=== PATIENT | female | born 1945 | race Caucasian/White ===

== ENCOUNTER 2017-01-25 21:31 | Inpatient (IN) | payer OTHER, MEDICARE ==
[2017-01-25 22:02] LABS: % IMMATURE GRANULYOCYTES 0.6 % (0.0-1.1); ABSOLUTE IMMATURE GRANULOCYTES 0.03 10^3/uL (0.00-0.10); ADD DIFF? NO; ADD MORPH? NO; ADD SCAN? NO; ATYPICAL LYMPHOCYTE FLAG 10 (0-99); FRAGMENT RBC FLAG 0 (0-99); HEMATOCRIT 40.8 % (38.0-47.0); HEMOGLOBIN 13.7 g/dL (12.6-16.3); LEFT SHIFT FLG 10 (0-99); LIPEMIA HEMOLYSIS FLAG 80 (0-99); MEAN CELL HEMOGLOBIN 35.8 pg (27.9-34.1); MEAN CELL HEMOGLOBIN CONCENTR. 33.6 g/dL (32.4-36.7); MEAN CELL VOLUME 106.5 fL (81.5-99.8); MEAN PLATELET VOLUME 8.2 fL (8.7-11.7); PLATELET CLUMPS FLAG 0 (0-99); PLATELET COUNT 217 10^3/uL (150-400); RED BLOOD CELL COUNT 3.83 10^6/uL (4.18-5.33); RED CELL DISTRIBUTION WIDTH 13.6 % (11.5-15.2)
[2017-01-25] MEDS ORDERED: NS 1,000 ML IV ONE (22:03)
[2017-01-25] MEDS ORDERED: ONDANSETRON 4 MG/2 ML VIAL IVP ONE (22:03)
[2017-01-25] MEDS ORDERED: PANTOPRAZOLE SODIUM 40 MG in NS 100 ML IV ONE (22:04)
--- NOTE | 2017-01-25 22:07 | EDPHY ---
H & P Stated Complaint: c/o mid upper gastric pain/n/v starting this am Time Seen by Provider: 01/25/17 21:55 HPI/ROS: Chief Complaint: Nausea, vomiting, abdominal pain HPI: 71-year-old woman past medical history metastatic breast cancer has been having vomiting and abdominal pain since waking up this morning. She is visiting from [place], has been here for a couple of weeks. Is currently on intermittent oral and intramuscular chemotherapy. She has metastasis to the base of her skull in her spine. Pain is described in the upper abdomen. No hematemesis. No dark black bowel movements or blood. No fevers or chills. No urinary symptoms. No chest pain or shortness of breath. Patient's daughter saying that she has been taking a Tums tablets sedation she has been here. Daughter also tells me that the patient did have a little too much to drink last night. ROS: 10 point Review of Systems is negative except as noted in the HPI. PMH: The sec breast cancer, hypertension, hypothyroidism Social History: No smoking, occasional alcohol, no recreational drug use Family History: non-contributory Physical Exam: Gen: Awake, Alert, No Distress HEENT: Nose: no rhinorrhea Eyes: PERRLA, EOMI Mouth: Dry mucosa Neck: Supple, no JVD Chest: nontender, lungs clear to auscultation Heart: S1, S2 normal, no murmur Abd: Soft, moderate epigastric tenderness to palpation, no right upper quadrant tenderness, no rib Mancia sign, no guarding Back: no CVA tenderness, no midline tenderness Ext: no edema, non-tender Skin: no rash Neuro: CN II-XII intact, Sensation grossly intact, Strength 5/5 in bilateral upper and lower extremities - Medical/Surgical History Hx Asthma: No Hx Chronic Respiratory Disease: No Hx Diabetes: No Hx Cardiac Disease: Yes Hx Renal Disease: No Hx Cirrhosis: No Hx Alcoholism: No Hx HIV/AIDS: No Hx Splenectomy or Spleen Trauma: No Other PMH: metastatic breast ca currently being tx , hypertension, hypothyroid, hysterectomy, bilat knee replacement, bilat hip replace - Social History Smoking Status: Never smoked Constitutional: Initial Vital Signs Temperature (C) 36.4 C 01/25/17 21:34 Heart Rate 62 01/25/17 21:34 Respiratory Rate 18 01/25/17 21:34 Blood Pressure 157/91 H 01/25/17 21:34 O2 Sat (%) 93 01/25/17 21:34 O2 Delivery Mode Room Air Allergies/Adverse Reactions: Sulfa (Sulfonamide Antibiotics) Allergy (Verified 01/25/17 21:39) Home Medications: Medication Instructions Recorded Ibrance 01/25/17 Levothyroxine 01/25/17 Unk Bp Med 01/25/17 traMADol 01/25/17 Medical Decision Making - Diagnostics Imaging Results: Imaging Impressions Abdomen Ultrasound 01/25/17 22:26 Impression: 1. Cholelithiasis without evidence of cholecystitis. 2. Intra and extra hepatic biliary dilatation, with the common duct measuring 16 mm, with no visible choledocholithiasis by ultrasound. 3. Enlarged fatty liver 4. Probable hepatic cyst. 5. Additional findings as above. Findings discussed with Ryan Amor MD 01/25/2017 at 23:32. Imaging: Discussed imaging studies w/ callisthenics instructor Radiologist ED Course/Re-evaluation: 71-year-old female with upper abdominal pain and dilated common bile duct with gallstones. No gallbladder wall thickening suggest acute cholecystitis. Will discuss with GI. Case was discussed with Dr. Sanderson, gastroenterology. He would like the patient to remain NPO. Patient be admitted to the hospitalist service. He will plan on doing an endoscopy tomorrow morning. I discussed with the hospitalist, Dr. Mariscal. He will admit to his service for further care. - Data Points Laboratory Results: Laboratory Results 01/25/17 21:56 01/25/17 21:56 01/25/17 01/25/17 21:56 21:56 WBC 4.76 10^3/uL 10^3/uL (3.80-9.50) RBC 3.83 10^6/uL L 10^6/uL (4.18-5.33) Hgb 13.7 g/dL g/dL (12.6-16.3) Hct 40.8 % % (38.0-47.0) MCV 106.5 fL H fL (81.5-99.8) MCH 35.8 pg H pg (27.9-34.1) MCHC 33.6 g/dL g/dL (32.4-36.7) RDW 13.6 % % (11.5-15.2) Plt Count 217 10^3/uL 10^3/uL (150-400) MPV 8.2 fL L fL (8.7-11.7) Neut % (Auto) 82.2 % H % (39.3-74.2) Lymph % (Auto) 5.9 % L % (15.0-45.0) [place] % (Auto) 9.2 % % (4.5-13.0) Eos % (Auto) 0.2 % L % (0.6-7.6) Baso % (Auto) 1.9 % H % (0.3-1.7) Nucleat RBC Rel Count 0.0 % % (0.0-0.2) Absolute Neuts (auto) 3.91 10^3/uL 10^3/uL (1.70-6.50) Absolute Lymphs (auto) 0.28 10^3/uL L 10^3/uL (1.00-3.00) Absolute Monos (auto) 0.44 10^3/uL 10^3/uL (0.30-0.80) Absolute Eos (auto) 0.01 10^3/uL L 10^3/uL (0.03-0.40) Absolute Basos (auto) 0.09 10^3/uL 10^3/uL (0.02-0.10) Absolute Nucleated RBC 0.00 10^3/uL 10^3/uL (0-0.01) Immature Gran % 0.6 % % (0.0-1.1) Immature Gran # 0.03 10^3/uL 10^3/uL (0.00-0.10) Sodium 140 mEq/L mEq/L (134-144) Potassium 3.7 mEq/L mEq/L (3.5-5.2) Chloride 103 mEq/L mEq/L (97-110) Carbon Dioxide 22 mEq/l mEq/l (22-31) Anion Gap 15 mEq/L mEq/L (8-16) BUN 12 mg/dL mg/dL (7-23) Creatinine 0.7 mg/dL mg/dL (0.6-1.0) Estimated GFR > 60 Glucose 174 mg/dL H mg/dL (70-100) Calcium 10.0 mg/dL mg/dL (8.5-10.4) Total Bilirubin 2.7 mg/dL H mg/dL (0.1-1.4) Conjugated Bilirubin 2.1 mg/dL H mg/dL (0.0-0.5) Unconjugated Bilirubin 0.6 mg/dL mg/dL (0.0-1.1) AST 345 IU/L H IU/L (14-46) ALT 193 IU/L H IU/L (9-52) Alkaline Phosphatase 225 IU/L H IU/L (38-126) Total Protein 6.7 g/dL g/dL (6.3-8.2) Albumin 4.0 g/dL g/dL (3.5-5.0) Lipase 30.0 IU/L IU/L (23-300) Medications Given: Discontinued Medications Sodium Chloride (Ns) 1,000 mls @ 0 mls/hr IV ONCE ONE PRN Reason: Wide Open Stop: 01/25/17 22:04 Last Admin: 01/25/17 22:18 Dose: 1,000 mls Pantoprazole Sodium 40 mg/ (Sodium Chloride) 100 mls @ 200 mls/hr IV EDNOW ONE Stop: 01/25/17 22:33 Last Admin: 01/25/17 22:19 Dose: 100 mls Ondansetron HCl (Zofran) 4 mg IVP EDNOW ONE Stop: 01/25/17 22:04 Last Admin: 01/25/17 22:18 Dose: 4 mg Departure - Departure Disposition: [facility] Acute Clinical Impression: Choledocholithiasis Condition: Fair Referrals: INDER BENÍTEZ [Other] - As per Instructions
[2017-01-25 22:18] LABS: ALANINE AMINOTRANSFERASE 193 IU/L (9-52); ALKALINE PHOSPHATASE 225 IU/L (38-126); ANION GAP 15 mEq/L (8-16); ASPARTATE AMINOTRANSFERASE 345 IU/L (14-46); BILIRUBIN,TOTAL 2.7 mg/dL (0.1-1.4); BILIRUBIN-CONJUGATED 2.1 mg/dL (0.0-0.5); BILIRUBIN-UNCONJUGATED 0.6 mg/dL (0.0-1.1); CARBON DIOXIDE 22 mEq/l (22-31); CHLORIDE 103 mEq/L (97-110); CREATININE 0.7 mg/dL (0.6-1.0); GLOMERULAR FILTRATION RATE > 60; GLUCOSE 174 mg/dL (70-100); POTASSIUM 3.7 mEq/L (3.5-5.2); SODIUM 140 mEq/L (134-144); TOTAL PROTEIN 6.7 g/dL (6.3-8.2)
[2017-01-26] MEDS ORDERED: fentaNYL 100 MCG/2 ML INJ IVP ONE ×2 (00:43→01:00)
[2017-01-26] MEDS ORDERED: ONDANSETRON 4 MG/2 ML VIAL IVP PRN (00:44)
[2017-01-26] MEDS ORDERED: NS 1,000 ML IV ONE (00:44)
[2017-01-26] MEDS ORDERED: ACETAMINOPHEN 325 MG TAB PO PRN (00:44)
[2017-01-26] MEDS ORDERED: ONDANSETRON DISINTEGRATING 4 MG TAB PO PRN (00:44)
[2017-01-26] MEDS ORDERED: ONDANSETRON 4 MG/2 ML VIAL IVP ONE (00:48)
[2017-01-26] MEDS ORDERED: ONDANSETRON 4 MG/2 ML VIAL ONE (00:49)
--- NOTE | 2017-01-26 00:59 | PDGENHP ---
History and Physical - Chief Complaint Abdominal pain - History of Present Illness 71 yo F w/ HTN and metastatic breast CA presenting with abdominal pain. Patient describes severe abdominal pain starting early on the morning of presentation. She denies fevers, chills, and altered mental status. She has a known history of gallstones (have been noted on several previous CT scans) and usually has transient, less severe episodes than this one. She is also complaining of nausea and not tolerating PO intake. History Information - Allergies/Home Medication List Allergies/Adverse Reactions: Sulfa (Sulfonamide Antibiotics) Allergy (Verified 01/25/17 21:39) Home Medications: Ibrance 01/25/17 [Last Taken Unknown] Levothyroxine 01/25/17 [Last Taken Unknown] Unk Bp Med 01/25/17 [Last Taken Unknown] traMADol 01/25/17 [Last Taken Unknown] I have personally reviewed and updated: family history, medical history - Past Medical History cancer (Metastatic breast cancer), hypertension - Surgical History Reports: no pertinent surgical hx - Family History Positive for: cancer (Breast cancer) - Social History Smoking Status: Never smoked Alcohol Use: None Drug Use: None Review of Systems ROS: 10pt was reviewed & negative except for what was stated in HPI & below Physical Exam Temp Pulse Resp BP Pulse Ox 36.8 C 70 16 136/97 H 92 01/26/17 00:24 01/26/17 00:24 01/26/17 00:24 01/26/17 00:24 01/26/17 00:24 Constitutional: no apparent distress, uncomfortable Eyes: PERRL, EOMI Ears, Nose, Mouth, Throat: moist mucous membranes, no oral mucosal ulcers Cardiovascular: regular rate and rhythym, no murmur, rub, or gallop Respiratory: no respiratory distress, clear to auscultation Gastrointestinal: normoactive bowel sounds, tenderness (Epi-gastric), No guarding, No rebound Skin: warm, no rashes or abrasions Musculoskeletal: full muscle strength, no muscle tenderness Neurologic: AAOx3, CN II-XII Intact Psychiatric: interacting appropriately, not anxious Lab Data & Imaging Review 01/25/17 21:56 01/25/17 21:56 WBC 4.76 10^3/uL (3.80-9.50) 01/25/17 21:56 RBC 3.83 10^6/uL (4.18-5.33) L 01/25/17 21:56 Hgb 13.7 g/dL (12.6-16.3) 01/25/17 21:56 Hct 40.8 % (38.0-47.0) 01/25/17 21:56 MCV 106.5 fL (81.5-99.8) H 01/25/17 21:56 MCH 35.8 pg (27.9-34.1) H 01/25/17 21:56 MCHC 33.6 g/dL (32.4-36.7) 01/25/17 21:56 RDW 13.6 % (11.5-15.2) 01/25/17 21:56 Plt Count 217 10^3/uL (150-400) 01/25/17 21:56 MPV 8.2 fL (8.7-11.7) L 01/25/17 21:56 Neut % (Auto) 82.2 % (39.3-74.2) H 01/25/17 21:56 Lymph % (Auto) 5.9 % (15.0-45.0) L 01/25/17 21:56 [place] % (Auto) 9.2 % (4.5-13.0) 01/25/17 21:56 Eos % (Auto) 0.2 % (0.6-7.6) L 01/25/17 21:56 Baso % (Auto) 1.9 % (0.3-1.7) H 01/25/17 21:56 Nucleat RBC Rel Count 0.0 % (0.0-0.2) 01/25/17 21:56 Absolute Neuts (auto) 3.91 10^3/uL (1.70-6.50) 01/25/17 21:56 Absolute Lymphs (auto) 0.28 10^3/uL (1.00-3.00) L 01/25/17 21:56 Absolute Monos (auto) 0.44 10^3/uL (0.30-0.80) 01/25/17 21:56 Absolute Eos (auto) 0.01 10^3/uL (0.03-0.40) L 01/25/17 21:56 Absolute Basos (auto) 0.09 10^3/uL (0.02-0.10) 01/25/17 21:56 Absolute Nucleated RBC 0.00 10^3/uL (0-0.01) 01/25/17 21:56 Immature Gran % 0.6 % (0.0-1.1) 01/25/17 21:56 Immature Gran # 0.03 10^3/uL (0.00-0.10) 01/25/17 21:56 Sodium 140 mEq/L (134-144) 01/25/17 21:56 Potassium 3.7 mEq/L (3.5-5.2) 01/25/17 21:56 Chloride 103 mEq/L (97-110) 01/25/17 21:56 Carbon Dioxide 22 mEq/l (22-31) 01/25/17 21:56 Anion Gap 15 mEq/L (8-16) 01/25/17 21:56 BUN 12 mg/dL (7-23) 01/25/17 21:56 Creatinine 0.7 mg/dL (0.6-1.0) 01/25/17 21:56 Estimated GFR > 60 01/25/17 21:56 Glucose 174 mg/dL (70-100) H 01/25/17 21:56 Calcium 10.0 mg/dL (8.5-10.4) 01/25/17 21:56 Total Bilirubin 2.7 mg/dL (0.1-1.4) H 01/25/17 21:56 Conjugated Bilirubin 2.1 mg/dL (0.0-0.5) H 01/25/17 21:56 Unconjugated Bilirubin 0.6 mg/dL (0.0-1.1) 01/25/17 21:56 AST 345 IU/L (14-46) H 01/25/17 21:56 ALT 193 IU/L (9-52) H 01/25/17 21:56 Alkaline Phosphatase 225 IU/L (38-126) H 01/25/17 21:56 Total Protein 6.7 g/dL (6.3-8.2) 01/25/17 21:56 Albumin 4.0 g/dL (3.5-5.0) 01/25/17 21:56 Lipase 30.0 IU/L (23-300) 01/25/17 21:56 Imaging Review: Abd U/S with intra and extrahepatic biliary duct dilation, CBD measuring 16 mm. Assessment & Plan Assessment: 71 yo F w/ hx of HTN and metastatic breast CA presenting with CBD obstruction. Plan: 1. CBD obstruction, acute - Most likely 2/2 choledocholithiasis, although no stone directly visualized during U/S. Cancer is also a possibility noting metastatic breast CA hx. T bili 2.7 (direct component 2.1) along with modest elevation in AST/ALT and Alk Phos. No signs of cholangitis at this time. - GI consulted - NPO at midnight for likely ERCP tomorrow - IVF, anti-emetics, pain control PRN 2. Metastatic breast CA - With metastases to various vertebrae. On Faslodex and Ibrance for treatment. 3. HTN - On atenolol as an outpatient Diet - NPO for ERCP Code - Full Ppx - Will order SCDs for now noting upcoming procedure. High risk noting malignancy and indicated for LMWH afterwards Dispo - Admit to inpatient
[2017-01-26 01:30] LABS: COLOR AMBER; LEUKOCYTE ESTERASE,URINE NEGATIVE (NEGATIVE); NITRITE,URINE NEGATIVE (NEGATIVE)
[2017-01-26 01:36] LABS: MUCUS TRACE /lpf (NONE-1+)
[2017-01-26 05:00] LABS: % IMMATURE GRANULYOCYTES 0.5 % (0.0-1.1); ABSOLUTE IMMATURE GRANULOCYTES 0.02 10^3/uL (0.00-0.10); ADD DIFF? NO; ADD MORPH? NO; ADD SCAN? NO; ATYPICAL LYMPHOCYTE FLAG 0 (0-99); FRAGMENT RBC FLAG 0 (0-99); HEMATOCRIT 34.4 % (38.0-47.0); HEMOGLOBIN 11.6 g/dL (12.6-16.3); LEFT SHIFT FLG 0 (0-99); LIPEMIA HEMOLYSIS FLAG 80 (0-99); MEAN CELL HEMOGLOBIN 35.7 pg (27.9-34.1); MEAN CELL HEMOGLOBIN CONCENTR. 33.7 g/dL (32.4-36.7); MEAN CELL VOLUME 105.8 fL (81.5-99.8); MEAN PLATELET VOLUME 8.2 fL (8.7-11.7); PLATELET CLUMPS FLAG 0 (0-99); PLATELET COUNT 178 10^3/uL (150-400); RED BLOOD CELL COUNT 3.25 10^6/uL (4.18-5.33); RED CELL DISTRIBUTION WIDTH 13.5 % (11.5-15.2)
[2017-01-26 05:09] LABS: INR 0.99 (0.83-1.16)
[2017-01-26 05:16] LABS: ALANINE AMINOTRANSFERASE 209 IU/L (9-52); ALBUMIN 2.9 g/dL (3.5-5.0); ALKALINE PHOSPHATASE 163 IU/L (38-126); ANION GAP 7 mEq/L (8-16); ASPARTATE AMINOTRANSFERASE 329 IU/L (14-46); BILIRUBIN,TOTAL 2.7 mg/dL (0.1-1.4); CARBON DIOXIDE 23 mEq/l (22-31); CHLORIDE 109 mEq/L (97-110); CREATININE 0.6 mg/dL (0.6-1.0); GLOMERULAR FILTRATION RATE > 60; GLUCOSE 107 mg/dL (70-100); POTASSIUM 4.1 mEq/L (3.5-5.2); SODIUM 139 mEq/L (134-144); TOTAL PROTEIN 5.3 g/dL (6.3-8.2)
[2017-01-26 05:45] LABS: BILIRUBIN-UNCONJUGATED 0.7 mg/dL (0.0-1.1)
[2017-01-26] MEDS ORDERED: PROPOFOL/EMULSION 500 MG/50 ML BOTTLE IV ONE (10:56)
[2017-01-26] MEDS ORDERED: MIDAZOLAM 2 MG/2 ML VIAL ONE (10:56)
[2017-01-26] MEDS ORDERED: fentaNYL 100 MCG/2 ML INJ ONE (10:56)
--- NOTE | 2017-01-26 11:11 | PDANEPAE ---
ANE Past Medical History - Cardiovascular History Hx Hypertension: Yes Hx Arrhythmias: No Hx Chest Pain: No Hx Coronary Artery / Peripheral Vascular Disease: No - Pulmonary History Hx COPD: No Hx Oxygen in Use at Home: No Hx Sleep Apnea: No Sleep Apnea Screening Result - Last Documented: Negative - Endocrine History Hx Diabetes: No - Chronic Pain History Chronic Pain: No ANE Patient History - Allergies Allergies/Adverse Reactions: Sulfa (Sulfonamide Antibiotics) Allergy (Verified 01/25/17 21:39) - Home Medications Home Medications: Ibrance 01/25/17 [Last Taken Unknown] Levothyroxine 01/25/17 [Last Taken Unknown] Unk Bp Med 01/25/17 [Last Taken Unknown] traMADol 01/25/17 [Last Taken Unknown] - NPO status NPO Since - Liquids (Date): 01/26/17 NPO Since - Liquids (Time): 00:00 NPO Since - Solids (Date): 01/26/17 NPO Since - Solids (Time): 00:00 - Smoking Hx Smoking Status: Never smoked - Alcohol Use Alcohol Use: None ANE Labs/Vital Signs - Labs Result Diagrams: 01/26/17 04:37 01/26/17 04:37 - Vital Signs Blood Pressure: 125/81 Heart Rate: 75 Respiratory Rate: 18 O2 Sat (%): 93 Height: 170.18 cm Weight: 94.7 kg
[2017-01-26] MEDS: INDOMETHACIN 50 MG SUPP PR ONE ×2 (11:33→14:54)
--- NOTE | 2017-01-26 11:49 | POSTOPPROG ---
Post Op Note Date of Operation: 01/26/17 Surgeon: Ryan Sanderson Anesthesia: GET(General Endotracheal) Pre-op Diagnosis: prob CBD stone with abnmol sonogram and LFT's Post-op Diagnosis: CBD stone/debris s/p ercp sphincterotomy and balloon stone removal Indication: abnl sonogram, abnml lft's presumed CBD stone Procedure: ERCp with sphincterotomy and stone removal by balloon Findings: small stone and debris s/p ballon removal Inf/Abcess present in the surg proc area at time of surgery?: No EBL: Minimal (few ml) Total fluids administered: 400 cc LR Complications: none immediate
--- NOTE | 2017-01-26 11:49 | SOAPPROG ---
SOAP Progress Note Assessment/Plan: Assessment:Plan: full consult to follow prob CBD stoner with abnl sonogram and lft's ERCp Ryan Sanderson M.D. 01/26/17 11:49 Objective: Vital Signs Temp Pulse Resp BP Pulse Ox 36.6 C 75 18 125/81 H 93 01/26/17 11:11 01/26/17 11:11 01/26/17 11:11 01/26/17 11:11 01/26/17 11:11 Laboratory Results 01/26/17 04:37 01/26/17 04:37 01/25/17 01/26/17 01/27/17 05:59 05:59 05:59 Intake Total 2066 Output Total 300 Balance 1766 PT 13.0 SEC (12.0-15.0) 01/26/17 04:37 INR 0.99 (0.83-1.16) 01/26/17 04:37 ICD10 Worksheet Patient Problems: Problems Problem Status Onset Choledocholithiasis Acute
--- NOTE | 2017-01-26 12:01 | POSTANESTH ---
Post Anesthetic Evaluation Respiratory Status: Normal, Stable Level of Consciousness/Mental Status: Can Participate in Eval Pain Control: Adequate, Prn Tx Ordered Nausea/Vomiting Control: Adequate, Prn Tx Ordered Complications Possibly Related to Anesthesia: None Noted (GA well tolerated, fully awake)
[2017-01-26] MEDS ORDERED: NALOXONE HCL 0.4 MG/ML INJ IVP PRN (12:02)
[2017-01-26] MEDS ORDERED: GLUCAGON,HUMAN RECOMBINANT 1 MG VIAL ONE (12:04)
[2017-01-26] MEDS ORDERED: IOTHALAMATE MEG (CONRAY) 50 ML VIAL IV ONE (12:05)
--- NOTE | 2017-01-26 12:49 | HOSPPROG ---
Hospitalist Progress Note Assessment/Plan: Isidra is a 71 y/o female w hx of breast ca who presented with severe abdominal pain. I reviewed her abdominal ultrasound which showed intra and extrahepatic biliary duct dilation, CBD measuring 16 mm. *CBD due to choledocholithiasis S/P ERCP w Dr Sanderson/had a sphincterotomy & stone removal *cholelithiasis plan is for cholecystectomy tomorrow updated patient, , called her daughter in addition to let her know *elevated LFT's due to the above * anemia w macrocytosis further f/u with her PCP *Metastatic breast ca with mets to vertebrae Faslodex & Ibrance *HTN: resumed home medications *Plan : or tomorrow/ Dr Chu to see in the morning/ will make NPO after midnight/ start fluids this evening Subjective: Isidra is feeling fine/ no pain after the procedure. Objective: Vital Signs Temp Pulse Resp BP Pulse Ox 36.5 C 60 22 H 144/92 H 94 01/26/17 12:39 01/26/17 12:39 01/26/17 12:40 01/26/17 12:39 01/26/17 12:40 Laboratory Results 01/26/17 04:37 01/26/17 04:37 01/25/17 01/26/17 01/27/17 05:59 05:59 05:59 Intake Total 2066 1000 Output Total 300 0 Balance 1766 1000 PT 13.0 SEC (12.0-15.0) 01/26/17 04:37 INR 0.99 (0.83-1.16) 01/26/17 04:37 - Physical Exam Constitutional: appears nourished, not in pain, chronically ill appearing, obese Eyes: PERRL Ears, Nose, Mouth, Throat: hearing normal Cardiovascular: regular rate and rhythym Respiratory: no respiratory distress Gastrointestinal: normoactive bowel sounds, soft, non-tender abdomen Skin: warm Musculoskeletal: no muscle tenderness Neurologic: AAOx3 Psychiatric: interacting appropriately, not anxious ICD10 Worksheet Patient Problems: Problems Problem Status Onset Choledocholithiasis Acute
[2017-01-26] MEDS ORDERED: IBUPROFEN 600 MG TAB PO PRN (13:30)
--- NOTE | 2017-01-26 14:56 | SOAPPROG ---
SOAP Progress Note Assessment/Plan: Assessment: 71-YEAR-OLD FEMALE WITH METASTATIC BREAST CANCER WHO PRESENTS WITH CHOLECYSTITIS AND A COMMON DUCT STONE STATUS POST ERCP TODAY WITH REMOVAL OF COMMON DUCT STONE. LFTS ARE ELEVATED. NO OTHER MAJOR ISSUES AT PRESENT BUT ON CHEMOTHERAPY Plan: HOLD LOVENOX/LAP CHOLY IN THE A.M./I WILL SEE HER IN THE A.M. WELL 01/26/17 14:55 Objective: Vital Signs Temp Pulse Resp BP Pulse Ox 36.4 C 65 14 154/95 H 92 01/26/17 13:55 01/26/17 13:55 01/26/17 13:55 01/26/17 13:55 01/26/17 13:55 Laboratory Results 01/26/17 04:37 01/26/17 04:37 01/25/17 01/26/17 01/27/17 05:59 05:59 05:59 Intake Total 2066 1000 Output Total 300 0 Balance 1766 1000 PT 13.0 SEC (12.0-15.0) 01/26/17 04:37 INR 0.99 (0.83-1.16) 01/26/17 04:37 ICD10 Worksheet Patient Problems: Problems Problem Status Onset Choledocholithiasis Acute
[2017-01-26] MEDS ORDERED: traMADol 50 MG TAB PO PRN (15:04)
[2017-01-26] MEDS ORDERED: CHOLECALCIFEROL VIT D3 50,000 UNIT CAP PO SCH (15:15)
--- NOTE | 2017-01-26 15:41 | GCON ---
[f rep st] CONSULTATION DATE OF CONSULTATION: 01/26/2017 REFERRING PHYSICIAN: Taqueria Piper MD REASON FOR CONSULTATION: Presumed choledocholithiasis with abnormal imaging studies and abnormal LFTs. HISTORY OF PRESENT ILLNESS: The patient is a very pleasant 71-year-old female with past medical history significant for breast cancer, hypertension, hypothyroidism and a history of a goiter many years ago, status post thyroidectomy. She is on some chemotherapy for her breast cancer. She presented to the emergency room with biliary colic. She has had a few episodes in the past but they have resolved. This is similar to her previous episodes, but did not resolve. Her pain was epigastric and right upper quadrant. She does have a history of gallstones that have been noted on her previous CT scans. She did have some nausea yesterday but none this morning when I met her. She was admitted for the above. She had an abnormal sonogram with dilated common bile duct and elevated liver enzymes consistent with choledocholithiasis. I am called to help evaluate and treat in that regard. This morning she is feeling much improved from last night; although, her liver enzymes have not changed significantly. PAST MEDICAL HISTORY: Breast cancer, hypertension, hypothyroidism, thyroidectomy many years ago for goiter. She had lumpectomy and some lymph nodes removed on her right side. She has had hysterectomy, knee surgery and hip surgery. MEDICATIONS: At home include Ibrance, levothyroxine, tramadol, and a blood pressure medication she could not remember the name. In the hospital, her medications include Tylenol p.r.n., Motrin p.r.n., and Zofran p.r.n. ALLERGIES: Sulfa. SOCIAL HISTORY: no tobacco, wine 2 per day FAMILY HISTORY: Breast cancer and dad had liver cancer. REVIEW OF SYSTEMS: A complete review of systems is performed and negative other than in the HPI. Pertinent negatives include no fevers, chills, sweats, chest pain, palpitations or diaphoresis. PHYSICAL EXAMINATION: GENERAL: Well-developed, well-nourished elderly female. No acute distress. VITAL SIGNS: Blood pressure is 125/81, pulse is 75, respirations are 18. She is 93% on room air. Temperature is 36.6. HEENT: Eyes: Anicteric, PERRL, EOMI. Mouth: No lesions, moist mucous membranes. NECK: Supple. Full range of motion. No JVD. BACK: No spine tenderness. No CVA tenderness. LUNGS: Clear to auscultation. CARDIAC: S1 and S2. Regular rate and rhythm. No murmurs, rubs or gallops appreciated. ABDOMEN: Bowel sounds are normal in pitch and frequency. Abdomen is soft with some epigastric right upper quadrant discomfort. No rebound or guarding. Difficult to assess hepatosplenomegaly, given body habitus. EXTREMITIES: No cyanosis, clubbing, or edema. NEUROLOGIC: Cranial nerves are intact. Nonfocal. SKIN: No stigmata of advanced liver disease. No rashes. LABORATORY DATA: From yesterday: AST 345, ALT 193, alkaline phosphatase 225. From today: AST 329, ALT 209, alkaline phosphatase 163, bilirubin 2.7, sodium 139, potassium 4.1, chloride 109, bicarb 23, BUN 9, creatinine 0.6. Hemoglobin 11.6, hematocrit 34.4, WBC 3.77, platelet count 178. Pro time 13.0, INR 0.99. IMAGING STUDIES: From last night show cholelithiasis without evidence of cholecystitis. Intra and extrahepatic biliary dilatation with the common bile duct measuring 16 mm. No visible choledocholithiasis by ultrasound. Enlarged fatty liver. Probable hepatic cyst. ASSESSMENT: 1. Probable choledocholithiasis with onset of biliary colic last night that did not improve until she presented to the hospital, evidence of a common bile duct dilatation and abnormal liver enzymes. 2. Metastatic breast cancer. 3. Hypothyroidism. 4. Hypertension. RECOMMENDATIONS: 1. Proceed with ERCP for presumed choledocholithiasis. 2. Recommend laparoscopic cholecystectomy after clearance of the common bile duct. 3. Treatment of her other medical problems as per the hospitalists. 4. We will give the patient a dose of Indocin prior to ERCP to decrease pancreatitis risk. 5. Further recommendations to follow results of above and clinical course. Given the patient's body habitus, metastatic breast cancer, hypertension and presumed choledocholithiasis, this will be a higher risk procedure than normal. The patient will be monitored continuously by anesthesia. She will be intubated for this procedure. Thank you for allowing me to participate in the patient's healthcare. Do not hesitate to call me if you have any questions. Copy requested to: Mario Lopez /[id number]/MODL MTDD
[2017-01-26] MEDS: LEVOTHYROXINE 150 MCG TAB PO SCH (15:59)
[2017-01-26] MEDS: PANTOPRAZOLE SODIUM 40 MG TAB PO SCH (15:59)
[2017-01-26] MEDS: ANASTROZOLE 1 MG TAB PO SCH (16:00)
[2017-01-26] MEDS: ATENOLOL 25 MG TAB PO SCH (16:00)
[2017-01-26] MEDS: Palbociclib [Ibrance] 125 MG PO SCH (17:05)
--- NOTE | 2017-01-26 20:11 | GPN ---
[f rep st] PROCEDURE NOTE DATE OF PROCEDURE: 01/26/2017 PROCEDURE: Endoscopic retrograde cholangiopancreatography with sphincterotomy and stone removal. INDICATION: Presumed choledocholithiasis, with dilated common bile duct and intrahepatic ducts, and abnormal liver enzymes. PREOPERATIVE DIAGNOSIS: Rule out choledocholithiasis. POSTOPERATIVE DIAGNOSIS: Choledocholithiasis, status post endoscopic sphincterotomy and balloon rem oval, with no residual filling defects. INFORMED CONSENT: I discussed with the patient regarding the procedure, alternatives, benefits, and risks, including bleeding, perforation, infection, and the risk of medication. Informed consent wa s signed and witnessed. COMPLICATIONS: None immediate. MEDICATIONS: Used during the anesthesia as per Dr. Kat. Glucagon 0.5 mg IV was given, and Indoc in 100 mg rectal suppository was given. DESCRIPTION OF PROCEDURE: After adequate anesthesia and patient placement in the recumbent position , the side-viewing upper endoscope was inserted via the oropharynx and advanced down into the duoden um. The major ampulla was noted. Initial cannulation and wire advancement within the pancreatic du ct. I repositioned it. I still was in the pancreatic duct. I repositioned it a third time, and I was able to deeply cannulate the common bile duct. Contrast was injected. There seemed to be a lacey ling defect in the distal duct. I performed endoscopic sphincterotomy with Erbe equipment to approx imately 15 mm. There was a stone right at the ampulla. I then did a guidewire exchange with a 9-12 mm balloon. I performed 2 sweeps with this, dislodging the stone that was initially noted and a sm all amount of debris other than that. I then changed the balloon to a larger balloon, a 12-15 mm ba lloon, and did another 2 sweeps starting at the bifurcation. I did not note any other defects being removed from the common bile duct. There was good bile flow and contrast flow at the end of the pr ocedure. The endoscope was removed, confirming the above findings. The patient tolerated the proce dure and transferred to the recovery room in satisfactory condition. IMPRESSION: Choledocholithiasis, status post endoscopic sphincterotomy and balloon removal. RECOMMENDATIONS: 1. Follow labs and follow clinically. 2. Surgical referral for laparoscopic cholecystectomy. 3. Treatment of her other medical problems as per hospitalist. Thank you for allowing me to participate in the patient's health care. Do not hesitate to call me w ith any questions. Copy requested to: Dr. Samy Lopez /[id number]/MODL
[2017-01-26] MEDS: NS 1,000 ML IV SCH (21:30)
--- NOTE | 2017-01-26 21:41 | GCON ---
[f rep st] CONSULTATION DATE OF CONSULTATION: 01/26/2017 CHIEF COMPLAINT: Choledocholithiasis. HISTORY OF PRESENT ILLNESS: The patient is a 71-year-old woman visiting from [place], who deve loped right upper quadrant pain. In the ER, she was found to have abnormal LFTs, and an ultrasound showed dilated common bile duct stone consistent with choledocholithiasis. She was taken for ERCP t dylan by Dr. Ehsan Sanderson for sphincterotomy and stone extraction. We are consulted at this time to marcia germain surgical options. At the time of the visit, she reports that her abdominal pain is absent. She denies any new complaints such as nausea, vomiting, fevers, constipation, diarrhea, or other. PAST MEDICAL HISTORY: Breast cancer metastatic to cervical vertebrae, hypertension, hypothyroidism. PAST SURGICAL HISTORY: Thyroidectomy, right lumpectomy with axillary dissection, hysterectomy with bilateral salpingo-oophorectomy, knee surgery, hip surgery. ALLERGIES: Sulfa. FAMILY HISTORY: Significant for breast cancer and liver cancer. SOCIAL HISTORY: She is originally from [place]. She is here visiting her daughter, who is a n urse at [employer]. She denies tobacco, alcohol, or recreational drug use. REVIEW OF SYSTEMS: 10-point review of systems negative aside from HPI. PHYSICAL EXAMINATION: GENERAL: Well-developed, well-nourished woman, in no acute distress. HEENT: Normocephalic, atraumatic. No hearing deficits. Pupils equal and round. No scleral icterus. Mu cous membranes moist. NECK: Trachea midline. RESPIRATORY: No increased work of breathing. Clear to auscultation bilaterally. CARDIOVASCULAR: Regular rate and rhythm. No peripheral edema. ABDO MEN: Bowel sounds heard throughout. Soft and nondistended. Nontender to palpation right upper james drant. No rebound or guarding. NEURO: Grossly intact. PSYCH: Mood and affect normal. IMPRESSION AND PLAN: A 71-year-old woman with choledocholithiasis, status post ERCP for sphincterot alan and stone extraction. We discussed laparoscopic cholecystectomy. We discussed risks of surgery , including, but not limited to, heart attack, stroke, blood clots, or . We discussed risk of infection, bleeding, damage to common bile duct or surrounding structures, bile leak, or retained st one. She understands the risks and would like to proceed. The case has been added on for Friday, 0 01/27/2017. She will be n.p.o. after midnight, receive IV antibiotics, on-call to the operating room , and consent is signed in her chart. She will be evaluated by Dr. Chu preoperatively. Case was discussed with Dr. Chu. /[id number]/MODL
[2017-01-27] MEDS: LEVOTHYROXINE 150 MCG TAB PO SCH (05:41)
--- NOTE | 2017-01-27 08:08 | HOSPPROG ---
Hospitalist Progress Note Assessment/Plan: Patient new to my care today. I have reviewed prior labs, notes. #Choledocholithiasis: s/p ERCP with sphincterotomy. Lap choley today by Dr. Chu #Transaminitis/hyperbilirubinemia: due to above #Metastatic breast cancer to spine: Fasolex, Ibrance #Diet: NPO #DVT ppx: SCDs with surgery #Disp: warrants inpt admission for stones, requiring lp choley # Subjective: feeling better. Pain minimal today Objective: Vital Signs Temp Pulse Resp BP Pulse Ox 36.7 C 69 16 124/73 H 90 L 01/27/17 04:00 01/27/17 04:00 01/27/17 04:00 01/27/17 04:00 01/27/17 04:00 Laboratory Results 01/26/17 04:37 01/26/17 04:37 01/26/17 01/27/17 01/28/17 05:59 05:59 05:59 Intake Total 2066 1440 Output Total 300 1800 Balance 1766 -360 PT 13.0 SEC (12.0-15.0) 01/26/17 04:37 INR 0.99 (0.83-1.16) 01/26/17 04:37 - Physical Exam Constitutional: no apparent distress Eyes: PERRL Ears, Nose, Mouth, Throat: moist mucous membranes, hearing normal Cardiovascular: regular rate and rhythym, no murmur, rub, or gallop Respiratory: no respiratory distress, no rales or rhonchi Gastrointestinal: normoactive bowel sounds, tenderness (mild RUQ TTP) Genitourinary: no bladder fullness Skin: warm Musculoskeletal: full muscle strength Neurologic: AAOx3, CN II-XII Intact Psychiatric: interacting appropriately ICD10 Worksheet Patient Problems: Problems Problem Status Onset Choledocholithiasis Acute
--- NOTE | 2017-01-27 08:42 | SOAPPROG ---
LÁZARO Progress Note Assessment/Plan: Assessment: 71-YEAR-OLD FEMALE WITH METASTATIC BREAST CANCER WHO PRESENTS WITH CHOLECYSTITIS AND A COMMON DUCT STONE STATUS POST ERCP TODAY WITH REMOVAL OF COMMON DUCT STONE. LFTS ARE ELEVATED. NO OTHER MAJOR ISSUES AT PRESENT BUT ON CHEMOTHERAPY Plan: HOLD LOVENOX/LAP CHOLY IN THE A.M./I WILL SEE HER IN THE A.M. WELL 01/26/17 14:55 01/27/17 08:41 COMFORTABLE/ AFEBRILE/ RISKS AND OPTIONS AGAIN FULLY DISCUSSED AND SHE WISHES TO PROCEED WITH LAP KELSI PT SP ERCP AND PRESENTLY ON CHEMO FOR BREAST CA BUT WBC OK Objective: Vital Signs Temp Pulse Resp BP Pulse Ox 36.5 C 82 14 139/77 H 90 L 01/27/17 08:00 01/27/17 08:00 01/27/17 08:00 01/27/17 08:00 01/27/17 08:00 Laboratory Results 01/26/17 04:37 01/26/17 04:37 01/26/17 01/27/17 01/28/17 05:59 05:59 05:59 Intake Total 2066 1440 Output Total 300 1800 Balance 1766 -360 PT 13.0 SEC (12.0-15.0) 01/26/17 04:37 INR 0.99 (0.83-1.16) 01/26/17 04:37 ICD10 Worksheet Patient Problems: Problems Problem Status Onset Choledocholithiasis Acute
[2017-01-27] MEDS: ANASTROZOLE 1 MG TAB PO SCH (09:35)
[2017-01-27] MEDS: PANTOPRAZOLE SODIUM 40 MG TAB PO SCH (09:35)
[2017-01-27] MEDS: ATENOLOL 25 MG TAB PO SCH (09:35)
[2017-01-27] MEDS: Palbociclib [Ibrance] 125 MG PO SCH (09:36)
[2017-01-27] MEDS ORDERED: ceFAZolin 2 GM/DEXTROSE 100 ML IV ONE ×2 (10:00→11:30)
[2017-01-27] MEDS ORDERED: LR 1,000 ML IV ONE (11:53)
[2017-01-27] MEDS ORDERED: BUPIVACAINE 0.5% 30 ML SDV ONE (12:30)
[2017-01-27] MEDS ORDERED: ceFAZolin 1 GM/5 ML SYR ONE (12:30)
[2017-01-27] MEDS ORDERED: HEPARIN 1000 UNIT/1 ML MDV ONE (12:30)
--- NOTE | 2017-01-27 13:47 | PDANEPAE ---
ANE History of Present Illness 71 yo female with pancreatitis s/p ERCP yesterday. ANE Past Medical History Past Medical History: No recent URI. Breast cancer on chemo. Has mets around C1/C2. H/o A-fib. h/o hyperthyroidism s/p excision. - Cardiovascular History Hx Hypertension: Yes Hx Arrhythmias: Yes Hx Chest Pain: No Hx Coronary Artery / Peripheral Vascular Disease: No - Pulmonary History Hx COPD: No Hx Oxygen in Use at Home: No Hx Sleep Apnea: No Sleep Apnea Screening Result - Last Documented: Negative - Endocrine History Hx Diabetes: No Hypothyroid: Yes - Chronic Pain History Chronic Pain: No ANE Patient History - Allergies Allergies/Adverse Reactions: Sulfa (Sulfonamide Antibiotics) Allergy (Verified 01/25/17 21:39) oxycodone Allergy (Uncoded 01/27/17 11:58) - Home Medications Home medications: home medication list seen and reviewed Home Medications: Anastrozole [Arimidex 1 mg (*)] 1 mg PO DAILY 01/26/17 [Last Taken Unknown] Atenolol [Tenormin 25 mg (*)] 25 mg PO DAILY 01/26/17 [Last Taken Unknown] Cholecalciferol Vit D3 [Vitamin D3 (*)] 50,000 unit PO PETERSON 01/26/17 [Last Taken 01/19/17] Levothyroxine [Synthroid 150 mcg (*)] 150 mcg PO DAILY06 01/26/17 [Last Taken Unknown] Ondansetron HCl [Zofran] 8 mg PO Q8H PRN 01/26/17 [Last Taken Unknown] Palbociclib [Ibrance] 125 mg PO DAILY 01/26/17 [Last Taken Unknown] Pantoprazole Sodium [Protonix 40mg (*)] 40 mg PO DAILY 01/26/17 [Last Taken Unknown] traMADol [Ultram 50 mg (*)] 50 mg PO Q4-6PRN PRN 01/26/17 [Last Taken Unknown] - NPO status NPO Since - Liquids (Date): 01/27/17 NPO Since - Liquids (Time): 06:00 NPO Since - Solids (Date): 01/26/17 NPO Since - Solids (Time): 19:00 - Smoking Hx Smoking Status: Never smoked - Alcohol Use Alcohol Use: None ANE Labs/Vital Signs - Labs Result Diagrams: 01/26/17 04:37 01/26/17 04:37 - Vital Signs Blood Pressure: 129/99 Heart Rate: 66 Respiratory Rate: 17 O2 Sat (%): 91 Height: 170.18 cm Weight: 94.7 kg ANE Physical Exam - Airway Neck exam: decreased ROM Mallampati Score: Class 1 Mouth exam: small mouth opening - Pulmonary Pulmonary: clear to auscultation - Cardiovascular Cardiovascular: regular rate and rhythym - ASA Status ASA Status: IV ANE Anesthesia Plan Anesthesia Plan: general endotracheal anesthesia
[2017-01-27] MEDS ORDERED: fentaNYL 100 MCG/2 ML INJ ONE ×2 (14:00)
[2017-01-27] MEDS ORDERED: PROPOFOL/EMULSION 500 MG/50 ML BOTTLE IV ONE (14:00)
[2017-01-27] MEDS ORDERED: DEXAMETHASONE 4 MG/ML VIAL ONE (14:01)
[2017-01-27] MEDS ORDERED: ONDANSETRON 4 MG/2 ML VIAL ONE ×2 (14:01→14:24)
[2017-01-27] MEDS ORDERED: ROCURONIUM 50 MG/5 ML VIAL ONE (14:01)
[2017-01-27] MEDS ORDERED: LIDOCAINE 2% 5 ML SDV ONE (14:01)
[2017-01-27] MEDS ORDERED: SUGAMMADEX SODIUM 200 MG/2 ML VIAL IVP ONE (14:24)
[2017-01-27] MEDS ORDERED: KETOROLAC 30 MG/1 ML SDV ONE (14:48)
[2017-01-27] MEDS ORDERED: ACETAMINOPHEN 500 MG TAB PO PRN (15:04)
[2017-01-27] MEDS ORDERED: LABETALOL HCL 50 MG/10 ML SYR IVP PRN (15:04)
[2017-01-27] MEDS ORDERED: PROMETHAZINE HCL 25 MG/ML INJ IVP PRN (15:04)
[2017-01-27] MEDS ORDERED: NALOXONE HCL 0.4 MG/ML INJ IVP PRN (15:04)
[2017-01-27] MEDS ORDERED: fentaNYL 100 MCG/2 ML INJ IVP PRN (15:04)
[2017-01-27] MEDS ORDERED: traMADol 50 MG TAB PO PRN (15:06)
--- NOTE | 2017-01-27 15:19 | POSTOPPROG ---
Post Op Note Date of Operation: 01/27/17 Surgeon: Edmar Chu Sales Administration Specialist: Aparna Ma Anesthesiologist: Maggy Anesthesia: GET(General Endotracheal) Pre-op Diagnosis: Cholecystitis Post-op Diagnosis: same Procedure: laproscopic cholecystectomy Findings: gallbladder containing stones, liver cyst Inf/Abcess present in the surg proc area at time of surgery?: No Depth: Organ Space EBL: Minimal Specimen(s): Gallbladder Liver cyst
--- NOTE | 2017-01-27 15:28 | POSTANESTH ---
Post Anesthetic Evaluation Cardiovascular Status: Normal, Stable Respiratory Status: Normal, Stable Level of Consciousness/Mental Status: Can Participate in Eval, Mildly Sleepy, Arousable Pain Control: Adequate, Prn Tx Ordered Nausea/Vomiting Control: Adequate, Prn Tx Ordered Complications Possibly Related to Anesthesia: None Noted
[2017-01-27] MEDS ORDERED: HYDROCODONE/APAP 5/325 TAB PO PRN (16:28)
[2017-01-27] MEDS ORDERED: HYDROmorphONE/DILAUDID 1 MG/ML SYR IVP PRN (16:31)
[2017-01-27] MEDS: NS 1,000 ML IV SCH (18:45)
[2017-01-27 19:28] VITALS: O2SAT 90
--- NOTE | 2017-01-28 06:25 | GOP ---
[f rep st] OPERATIVE REPORT DATE OF OPERATION: 01/27/2017 SURGEON: Edmar Chu MD SPEECH COACH: JUDY Flores ANESTHESIOLOGIST: Dr. oGrdon. PREOPERATIVE DIAGNOSIS: Cholelithiasis and cholecystitis. POSTOPERATIVE DIAGNOSIS: Cholelithiasis and cholecystitis plus liver cyst. PROCEDURE PERFORMED: Lap katy with resection liver cyst FINDINGS: The patient was found to have a subacute cholecystitis with multiple stones and small ducts. In addition she has a 2-1/2 cm benign appearing liver cyst in the right lobe of the liver. DESCRIPTION OF PROCEDURE: The patient was taken to the operating room, where she received satisfactory general endotracheal anesthesia by Dr. Gordon. She was placed in supine position, prepped and draped in usual sterile fashion. A periumbilical incision was made. A Veress needle inserted. Pneumoperitoneum was established. Trocar was introduced. Laparoscope introduced. Good visualization was obtained. Three other trocars were placed in the upper abdomen under direct vision. The gallbladder was elevated up. Adhesions were taken down. The cystic triangle was carefully exposed. The cystic duct and cystic artery were dissected free with care to avoid injury to the common bile duct. Both structures were multiply hemoclipped and divided. The peritoneum of the gallbladder was incised. The gallbladder was dissected free from the bed and hepatic fossa, and extracted through the upper midline port site. Hemostasis was assured. Attention was turned to the PAC system. The edge of the right lobe of the liver. This was removed using electrocautery. Hemostasis was obtained. The cyst wall was sent to Pathology. The wound was treated with electrocautery for hemostasis and covered with some Rm dressing. Hemostasis appeared to be adequate. Trocars were removed under direct vision. Pneumo peritoneum was released. Trocar sites were closed with 0 Vicryl for the fascia, 4-0 Monocryl subcuticular stitch for the skin. All layers infiltrated with 0.5% Marcaine. She tolerated the procedure well. She was taken to the recovery room in good condition. /[id number]/MODL MTDD
[2017-01-28] MEDS: LEVOTHYROXINE 150 MCG TAB PO SCH (06:33)
[2017-01-28 08:29] VITALS: BP 141/86; PULSE 70; RESP 20; TEMP 98.7
[2017-01-28] MEDS ORDERED: ENOXAPARIN 40 MG/0.4 ML SYR SC SCH (09:00)
[2017-01-28] MEDS: ANASTROZOLE 1 MG TAB PO SCH (09:35)
[2017-01-28] MEDS: ATENOLOL 25 MG TAB PO SCH (09:35)
[2017-01-28] MEDS: PANTOPRAZOLE SODIUM 40 MG TAB PO SCH (09:36)
--- NOTE | 2017-01-28 10:08 | HOSPPROG ---
Hospitalist Progress Note Assessment/Plan: #Choledocholithiasis: s/p ERCP with sphincterotomy. Lap choley successful. Avoid fatty foods #Transaminitis/hyperbilirubinemia: trending down #Metastatic breast cancer to spine: Fasolex, Ibrance #Diet: ADAT #DVT ppx: SCDs with surgery #Disp: DC today # Subjective: no abd pain, ate breakfast Objective: Vital Signs Temp Pulse Resp BP Pulse Ox 37.1 C 70 20 141/86 H 90 L 01/28/17 08:00 01/28/17 08:00 01/28/17 08:00 01/28/17 08:00 01/28/17 08:00 Laboratory Results 01/26/17 04:37 01/26/17 04:37 01/27/17 01/28/17 01/29/17 05:59 05:59 05:59 Intake Total 1440 1510 Output Total 1800 990 Balance -360 520 PT 13.0 SEC (12.0-15.0) 01/26/17 04:37 INR 0.99 (0.83-1.16) 01/26/17 04:37 - Physical Exam Constitutional: no apparent distress Eyes: PERRL Ears, Nose, Mouth, Throat: moist mucous membranes Cardiovascular: regular rate and rhythym, no murmur, rub, or gallop Respiratory: no respiratory distress, no rales or rhonchi Gastrointestinal: normoactive bowel sounds, soft, non-tender abdomen, other ( surgical incisions C/D/I) Genitourinary: no bladder fullness Skin: warm Musculoskeletal: full muscle strength Neurologic: AAOx3, CN II-XII Intact ICD10 Worksheet Patient Problems: Problems Problem Status Onset Choledocholithiasis Acute
[2017-01-28] MEDS: Palbociclib [Ibrance] 125 MG PO SCH (10:14)
--- NOTE | 2017-01-28 10:51 | GDS ---
[f rep st] DISCHARGE SUMMARY DISCHARGE DIAGNOSES: 1. Cholelithiasis and cholecystitis. 2. Transaminitis. 3. Acute abdominal pain. 4. History of metastatic breast cancer. 5. Hypothyroidism. PROCEDURES: 1. ERCP. 2. Lap cholecystectomy on 01/27/2017. HPI: A 71-year-old female with history of metastatic breast cancer and hypertension was visiting family, who presented with abdominal pain. It was described as severe, starting the morning of presentation. No fevers, chills, or sweats. She has known history of gallstones seen on prior CT scans. She also had nausea and was not tolerating p.o. very well. HOSPITAL COURSE BY PROBLEM: 1. Cholelithiasis, cholecystitis: underwent ERCP and sphincterotomy with subsequent lap cholecystectomy without issue. Resume a low fat, low fiber diet. 2. Transaminitis: improving. 3. Acute abdominal pain, resolved. Tolerating p.o. 4. Metastatic breast cancer. Continue home medications. She is to follow up with her oncologist in [place]. 5. Hypothyroidism. Continue levothyroxine. DISPOSITION: The patient is stable for discharge. NEW MEDICATIONS: No new medications. INSTRUCTIONS: Follow up with her primary oncologist. She was given strict return precautions if acute abdominal pain, fevers, chills, or sweats. /[id number]/MODL MTDD
--- NOTE | 2017-01-28 11:22 | SOAPPROG ---
LÁZARO Progress Note Assessment/Plan: Assessment: 71-YEAR-OLD FEMALE WITH METASTATIC BREAST CANCER WHO PRESENTS WITH CHOLECYSTITIS AND A COMMON DUCT STONE STATUS POST ERCP TODAY WITH REMOVAL OF COMMON DUCT STONE. LFTS ARE ELEVATED. NO OTHER MAJOR ISSUES AT PRESENT BUT ON CHEMOTHERAPY Plan: HOLD LOVENOX/LAP CHOLY IN THE A.M./I WILL SEE HER IN THE A.M. WELL 01/26/17 14:55 01/27/17 08:41 COMFORTABLE/ AFEBRILE/ RISKS AND OPTIONS AGAIN FULLY DISCUSSED AND SHE WISHES TO PROCEED WITH LAP KELSI PT SP ERCP AND PRESENTLY ON CHEMO FOR BREAST CA BUT WBC OK 01/28/17 11:21 ABD SOFT/ WOUNDS OK/ AFEBRILE/ NO PROBLEMS/ TOLERATING PO/ PLAN ADVANCE DIET / HOME TODAY OR IN AM Objective: Vital Signs Temp Pulse Resp BP Pulse Ox 37.1 C 70 20 141/86 H 90 L 01/28/17 08:00 01/28/17 08:00 01/28/17 08:00 01/28/17 08:00 01/28/17 08:00 Microbiology 01/26/17 01:00 Urine Culture - Final Urine,Clean Catch Gardnerella Vaginalis Three [place] Types Laboratory Results 01/26/17 04:37 01/26/17 04:37 01/27/17 01/28/17 01/29/17 05:59 05:59 05:59 Intake Total 1440 1510 Output Total 1800 990 Balance -360 520 PT 13.0 SEC (12.0-15.0) 01/26/17 04:37 INR 0.99 (0.83-1.16) 01/26/17 04:37 ICD10 Worksheet Patient Problems: Problems Problem Status Onset Choledocholithiasis Acute
== END 2017-01-28 11:25 | disposition home or self-care (01) | DRG 418 ==
LOC: OBSVTOIN 01-26 00:52 → F3E 01-26 01:00
PROVIDERS: ADMIT Student in an Organized Health Care Education/Training Program; ATTEND Student in an Organized Health Care Education/Training Program
PROC: 0FC98ZZ Extirpation of Matter from Common Bile Duct, Via Natural or Artificial Opening Endoscopic (ICD-10-PCS; 2017-01-26)
PROC: BF101ZZ Fluoroscopy of Bile Ducts using Low Osmolar Contrast (ICD-10-PCS; 2017-01-26)
PROC: 0FB14ZX Excision of Right Lobe Liver, Percutaneous Endoscopic Approach, Diagnostic (ICD-10-PCS; principal; 2017-01-27 12:15)
PROC: 0FT44ZZ Resection of Gallbladder, Percutaneous Endoscopic Approach (ICD-10-PCS; principal; 2017-01-27 12:15)
DX: K80.44 Calculus of bile duct with chronic cholecystitis without obstruction (principal); K76.89 Other specified diseases of liver; R74.0 Nonspecific elevation of levels of transaminase and lactic acid dehydrogenase [LDH]; D64.9 Anemia, unspecified; I10 Essential (primary) hypertension; E03.9 Hypothyroidism, unspecified; Z85.3 Personal history of malignant neoplasm of breast; C79.51 Secondary malignant neoplasm of bone; Z96.643 Presence of artificial hip joint, bilateral; Z96.653 Presence of artificial knee joint, bilateral
CPT/HCPCS: 96365; J0690; J1100; J1610; J1650; J1885; J2250; J2405; J2704; J3010; Q9961